=== PATIENT | female | born 1940 | race Caucasian/White ===

== ENCOUNTER 2016-11-09 21:18 | Inpatient (IN) | payer MEDICARE, BC ==
--- NOTE | ~2016-11-09 | OP ---
Record Of Operation [facility] [address] [place]. [address] NAME: SULEIMAN LEWIS : 38 STATUS : ADM IN PAT#: [id number] AGE: 76 ADM/REG DATE : 11/09/16 MR#: [id number] REPORT SERV DATE: 11/10/16 DICTATED BY: LEBRON WILSON DATE: 11/10/16 REPORT STATUS : Draft TRANSCRIBED BY: MODL DATE: 11/10/16 DATE OF PROCEDURE: 11/10/2016 PREOPERATIVE DIAGNOSIS: Right three-part intertrochanteric hip fracture. POSTOPERATIVE DIAGNOSIS: Right three-part intertrochanteric hip fracture. PROCEDURE PERFORMED: Right hip long gamma nail application (intramedullary brian stabilization). SURGEON: Lebron Wilson M.D. SECURITY SPECIALIST: Stan Dowell. ANESTHESIA: Spinal with sedation. PROCEDURE IN DETAIL: The patient is clearly identified, after obtaining informed consent, is brought to the operating room of [facility] where she is induced under general anesthesia, placed carefully on the fracture table, has her right lower extremity distracted with some internal rotation. Image intensification reveals the fracture to be anatomically reduced. The lesser trochanteric fracture is somewhat minimally displaced, but the main body of the intertrochanteric fracture seems anatomic; therefore, it is felt appropriate to proceed. The right lower extremity is prepped and draped in the usual manner and after appropriate time-out procedure is performed just proximal to the greater trochanter through 1-inch incision, skin is divided, fascial planes are elevated. The guide pin is placed carefully into the proximal femur. The greater trochanteric entry site typically that is there is containing the intertrochanteric fracture, but regardless, the site is opened nicely and guided through this case with image intensifier. A beaded guide pin is then placed by the knee, the length measures 360, and therefore, the femur was then reamed to 11.5 mm, at which point, the 125 degree 360 x 10 long gamma nail is opened and placed carefully into position uneventfully. A second incision is made to pass the guide pin into the appropriate position in the femoral head, which therefore was then measured, reamed, and a lag screw is applied uneventfully and dynamically locked. This concluded, looking rather good with the C-arm, the proximal guiding apparatus is removed and subsequently a distal dynamic screw is placed with perfect [place] technique uneventfully, at which point, the image intensifier revealed acceptable position and alignment of fracture as well as fixation. Copious irrigation was performed. The wounds are closed in layers and dressed after the leg is cleansed, at which point, the patient is allowed to awaken and is transferred to the recovery room in stable condition having tolerated the procedure well. CÉSAR/CHRISSY Lebron Wilson M.D. Record Of [address] [address] NAME: SULEIMAN LEWIS HAILEE : 38 STATUS : ADM IN PAT#: [id number] AGE: 76 ADM/REG DATE : 11/09/16 MR#: [id number] REPORT SERV DATE: 11/10/16 DICTATED BY: LEBRON WILSON DATE: 11/10/16 REPORT STATUS : Draft TRANSCRIBED BY: CHRISSY DATE: 11/10/16 / [id number] CC: Devaughn Escobedo MD
--- NOTE | ~2016-11-09 | HP ---
History And Physical [facility] [address] [facility] [place]. [address] NAME: SULEIMAN LEWIS : 38 STATUS : ADM IN [facility]#: [id number] AGE: 76 ADM/REG DATE : 11/09/16 MR#: [id number] REPORT SERV DATE: 11/10/16 DICTATED BY: ESTELA DUARTE DATE: 11/09/16 REPORT STATUS : Draft TRANSCRIBED BY: MODPadmini DATE: 11/09/16 DATE OF ADMISSION: 11/09/2016 CHIEF COMPLAINT: Status post fall with right hip pain and inability to walk today. HISTORY OF PRESENT ILLNESS: This is a very pleasant 76-year-old female. She has a history of breast cancer x2, right and left, status post surgery, radiation, and chemotherapy in 1994 and 2008, currently she is cancer free according to patient and the son who has accompanied the patient, history of hypertension, mild cognitive impairment, osteoporosis presenting today to [facility] accompanied by her son after she sustained a mechanical fall today. The patient was going today to pickle sorter her mail outside and she slipped and she fell on the right side. After that, she has been seen by her neighbor, they helped her to get to her house. They called her son who came and saw the patient and then brought her to [facility] emergency room. There was no presyncopal or syncopal episodes. There was no chest pain or palpitation. There was no shortness of breath, no PND or orthopnea. There was no nausea or vomiting. No diarrhea or constipation. There was no increased urinary frequency or urgency. No hematemesis. No melena. No hematochezia. No other complaints. The patient has been evaluated in the emergency room and x-ray of the right hip has shown that the patient sustained a right hip fracture. The patient has been admitted to Hospitalist Service for further evaluation and treatment. PAST MEDICAL HISTORY: Significant for hypertension, mild cognitive impairment, osteoarthritis, osteoporosis, history of breast cancer. PAST SURGICAL HISTORY: Include multiple dental procedure with prior cellulitis and osteomyelitis of the maxilla. SOCIAL HISTORY: The patient denies tobacco, alcohol, or IV drugs. FAMILY HISTORY: Significant for CVA. ALLERGIES: SHE IS ALLERGIC TO LATEX. MEDICATIONS: At home include Artificial Tears, vitamin C, aspirin, vitamin D3, Catapres, Aricept, Zestril, Claritin, Systane ophthalmic solution, Evista, tobramycin, vitamin E, and Desyrel. REVIEW OF SYSTEMS: A 14-point review of systems has been obtained and pertinent positive has been listed into the history of present illness. Otherwise, negative except those underlying above. PHYSICAL EXAMINATION: VITAL SIGNS: T-max 99.2, blood pressure 138/48, heart rate 81, respiratory rate 19, saturating 97% on room air. GENERAL: She is extremely frail, well-developed, well-nourished female, in no acute distress. She is alert and oriented x3. She is nonfocal. She follows commands History And Physical [address] [address] NAME: SULEIMAN LEWIS : 38 STATUS : ADM IN [facility]#: [id number] AGE: 76 ADM/REG DATE : 11/09/16 MR#: [id number] REPORT SERV DATE: 11/10/16 DICTATED BY: ESTELA DUARTE DATE: 11/09/16 REPORT STATUS : Draft TRANSCRIBED BY: CHRISSY DATE: 11/09/16 appropriately. HEENT: Exam shows pupils equal, round, reactive to light. Extraocular movements intact. No JVD. No lymphadenopathy. No thyromegaly appreciated. CHEST: Evaluation shows bilateral air entry. Clear anteroposterior. Decreased breath sounds bibasilarly. No wheezes, crackles, or rhonchi appreciated. CARDIOVASCULAR: She is regular rate and rhythm. S1, S2 positive. No S3, no S4. No murmurs, rubs, or gallops appreciated. ABDOMEN: Soft with positive bowel sounds. Nontender. No guarding. No rebound. EXTREMITIES: No clubbing, cyanosis, or edema. NEUROLOGY: She is alert and oriented x3. Nonfocal. She is not able to move her right lower extremities. Cranial nerves are intact. She follows all her commands appropriately. LABORATORY DATA: Labs from today include sodium of 136, potassium 4.1, chloride 108, CO2 of 26, BUN 11, creatinine 0.75, glucose is 125, calcium 8.3. Total protein 6.8, albumin 3.3, globulin 3.5. Total bilirubin 0.2, alkaline phosphatase 89, ALT 19, AST 20. Her white count is 13, hemoglobin 11.5, hematocrit 35.4, and platelets are 348, INR is 1.2. Her UA has been negative. A chest x-ray, portable, currently is pending and the hip 1-view showed right femoral neck fracture. ASSESSMENT AND PLAN: This is a very pleasant 76-year-old female, status post fall with: 1. Right hip fracture with intractable pain, inability to walk. 2. History of hypertension. 3. History of dementia. 4. Osteoarthritis with osteoporosis. PLAN: 1. The patient is going to be admitted to Hospitalist Service. We are going to keep her n.p.o. past midnight. IV fluids. Pain control. Check chest x-ray, EKG. We are going to provide pain control, supportive care, and consult Dr. Wilson, Orthopedic, with whom I talked personally and will evaluate the patient in the morning. 2. History of hypertension. We will continue her home medications and provide p.r.n. hydralazine as needed. 3. History of dementia. We will continue her home medications. 4. Osteoarthritis, osteoporosis. We are going to check TSH and a free T4, also a set of cardiac enzymes, magnesium, and phosphorus as well. We are going to provide GI and DVT prophylaxis with SCDs. That has been discussed extensively with the patient as well as the patient's son. All the questions have been answered in full. It is worthwhile to note that the patient is going to be followed up by Hospitalist Service. CF/CHRISSY Estela Duarte M.D. History And Physical [address] [address] NAME: SULEIMAN LEWIS : 38 STATUS : ADM IN PAT#: [id number] AGE: 76 ADM/REG DATE : 11/09/16 MR#: [id number] REPORT SERV DATE: 11/10/16 DICTATED BY: ESTELA DUARTE DATE: 11/09/16 REPORT STATUS : Draft TRANSCRIBED BY: MODL DATE: 11/09/16 / [id number] CC: Devaughn Escobedo MD
--- NOTE | ~2016-11-09 | DS ---
Discharge Summary [facility] [address] [place]. [address] NAME: SULEIMAN LEWIS : 36 STATUS : DIS IN PAT#: [id number] AGE: 76 ADM/REG DATE : 11/09/16 MR#: [id number] REPORT SERV DATE: 11/13/16 DICTATED BY: KRISH CHACON DATE: 11/12/16 REPORT STATUS : Draft TRANSCRIBED BY: MODPadmini DATE: 11/12/16 ADMISSION DATE: 11/09/2016 DISCHARGE DATE: 11/12/2016 CONDITION ON DISCHARGE: Stable. DISPOSITION: Discharged to inpatient rehab for rehabilitating after right hip fracture post ORIF. DIAGNOSES ON DISCHARGE: 1. Right hip fracture, status post open reduction and internal fixation with nail per Orthopedic. 2. Acute blood loss anemia from surgery - resolved after transfusion of packed red blood cells. 3. Hypertension, controlled with current medications. 4. Xsrb-ve-[id number] dementia which is stable and the patient is on Aricept. 5. Frequent falls from above - hopefully, this will be avoided in the future once the patient is in the rehab and learn to balance herself better. BRIEF HOSPITAL COURSE: The patient is a 76-year-old female patient who was admitted with a recent fall, and after one of those falls, she ended up breaking her right hip. The patient was admitted for right hip fracture and underwent open reduction and internal fixation. The patient did great after surgery except that she had quite a bit of blood loss during surgery and had to be given two units of PRBCs. She tolerated the transfusion really well, and today, on the day of discharge, she feels much better. Her color is back, and her hemoglobin and hematocrit is back up to 10 and 30. She feels well and being discharged to inpatient rehab in stable condition. She will be on the following medications upon discharge: 1. Aricept 10 mg once a day. 2. Ferrous sulfate 300 mg p.o. b.i.d. 3. Colace 100 mg p.o. b.i.d. 4. Vitamin D 1000 units p.o. daily. 5. Vitamin C 500 mg p.o. daily. 6. Folic acid 1 mg p.o. daily. 7. Lisinopril 20 mg once a day. 8. Claritin 10 mg once a day. 9. Multivitamins once a day. 10.Protonix 40 mg once a day. 11.TobraDex ophthalmic suspension one drop to both eyes three times a day. 12.Vitamin E 800 units p.o. daily. 13.Coumadin sliding scale per Ortho to keep INR between 2 and 3. 14.Clonidine 0.1 mg topical patch, which will be given once a week. 15.The patient will also be on Evista 60 mg once a day and trazodone or Desyrel 50 mg once at bedtime. She will not be on aspirin 81 mg at least for some more time, maybe for another week or two until she is able to build her counts back up. Discharge Summary [address] [place]. [address] NAME: SULEIMAN LEWIS : 38 STATUS : DIS IN PAT#: [id number] AGE: 76 ADM/REG DATE : 11/09/16 MR#: [id number] REPORT SERV DATE: 11/13/16 DICTATED BY: KRISH CHACON DATE: 11/12/16 REPORT STATUS : Draft TRANSCRIBED BY: CHRISSY DATE: 11/12/16 Most recent labs upon discharge on this patient include the followin. Her CBC on 11/12/2016 shows a WBC count of 10.3, hemoglobin is 10, hematocrit is 29.3 after transfusion. Before transfusion, it was as low as 6.7 and 20.3 due to surgery. However, after she received two units of PRBCs, it came up to 10 and 29.3. Creatinine is normal at 0.5. Electrolytes are normal and her INR today is 3.0 and hence Coumadin should probably be held today but further management of Coumadin and instructions will be given by Orthopedic Surgery as the patient is post hip surgery. I have spent about 35 minutes in coordinating discharge care of this patient including face- to-face encounter and summarizing this discharge. DICTATED BY: Devaughn Escobedo/CHRISSY Krish Chacon M.D. / [id number] CC: Krish Chacon M.D. Sharona Berkowitz MD
[2016-11-09 20:18] LABS: BASOPHILS 0.1 %; BASOPHILS ABSOLUTE 0.01 10/3/uL (0.0-0.16); EOSINOPHILS 0.1 %; EOSINOPHILS ABSOLUTE 0.01 10/3/uL (0.0-0.53); HEMATOCRIT 35.4 % (36.0-48.0); HEMOGLOBIN 11.5 g/dL (12.0-16.0); IMMATURE GRANULOCYTES 0.2 %; IMMATURE GRANULOCYTES ABSOLUTE 0.03 10/3/uL (0.0-0.11); LYMPHOCYTES 8.3 %; LYMPHOCYTES ABSOLUTE 1.08 10/3/uL (0.67-4.30); MEAN CORPUS HGB CONC 32.5 g/dL (32.0-36.0); MEAN CORPUSCULAR HEMOGLOB 28.8 pg (26.0-34.0); MEAN PLATELET VOLUME 9.7 fL (9.2-13.0); MONOCYTES 8.1 %; MONOCYTES ABSOLUTE 1.05 10/3/uL (0.21-1.20); NEUTROPHILS 83.2 %; NEUTROPHILS ABSOLUTE 10.82 10/3/uL (2.02-8.40); PLATELET COUNT 348 10/3/uL (150-400); RBC DISTRIBUTION WIDTH 13.6 % (12.0-16.0); RED CELL COUNT 3.99 10/6/uL (4.0-5.6)
[2016-11-09 20:20] LABS: MANUAL DIFF NO %; MEAN CORPUSCULAR VOLUME 88.7 fL (80-100)
[2016-11-09 20:26] LABS: INTERNATIONAL NORMAL RATI 1.2 UNITS (-); PARTIAL THROMBO TIME 24.5 SEC (22.5-37.2); PROTIME (NOT ORD) 14.8 SEC (12.0-14.5)
[2016-11-09 20:34] LABS: A/G RATIO 0.9 (0.7-1.9); ALBUMIN 3.3 G/DL (3.5-5.0); BUN (BLOOD UREA NITROGEN) 11 MG/DL (6-23); CALCIUM, SERUM 8.3 MG/DL (8.5-10.4); CHLORIDE, SERUM 108 MMOL/L (96-112); CREATININE 0.75 MG/DL (0.55-1.02); GFR AFRICAN AMERICAN 88 ML/MIN (>=60); GFR NON AFRICAN AMERICAN 76 ML/MIN (>=60); GLOBULIN 3.5 G/DL (2.5-4.1); POTASSIUM, SERUM 4.1 MMOL/L (3.5-5.3); SGOT(AST) 20 U/L (5-40); SGPT(ALT) 19 U/L (5-65); SODIUM, SERUM 136 MMOL/L (135-148); TOTAL BILIRUBIN 0.2 MG/DL (0-1.2); TOTAL PROTEIN 6.8 G/DL (6.0-8.5)
[2016-11-09 20:35] LABS: ALKALINE PHOSPHATASE 89 U/L (45-117); CO2 (CARBON DIOXIDE) 26 MMOL/L (24-34); GLUCOSE, SERUM 125 MG/DL (60-99)
[~2016-11-09 21:18] MED LIST: AMIT25 PO; ASAB PO; BONIVA150 MG PO; CALTRA600D PO; CATPATCH1 TOP; EVISTA60 PO; MULTIPLE VIT PO; SURBEX-T1 TAB PO; VITA D PO; VITAMIN D1000 UNI1 PO; VITC500 PO; VITE PO
[2016-11-09] MEDS ORDERED: ARICEPT10 PO (22:06)
[2016-11-09] MEDS ORDERED: EVISTA60 PO (22:06)
[2016-11-09] MEDS ORDERED: [UNRECOGNIZED DRUG - CODE] OPH (22:06)
[2016-11-09] MEDS ORDERED: TRAZ50 PO (22:07)
[2016-11-09] MEDS ORDERED: CLARIT10 PO (22:07)
[2016-11-09] MEDS ORDERED: CATPATCH1 TOP (22:07)
[2016-11-09] MEDS ORDERED: ASAB PO (22:07)
[2016-11-09] MEDS ORDERED: SYSTANE OPH (22:08)
[2016-11-09] MEDS ORDERED: REFRESH OPH (22:08)
[2016-11-09] MEDS ORDERED: VITAMIN B PO (22:08)
[2016-11-09] MEDS ORDERED: VITAMIN D31000 UNIT PO (22:08)
[2016-11-09] MEDS ORDERED: VITE1000 PO (22:09)
[2016-11-09] MEDS ORDERED: VITC500 PO (22:09)
[2016-11-09] MEDS ORDERED: ZESTRIL20 MG PO (22:09)
[2016-11-09 22:30] LABS: ASCORBIC ACID (UR NOT ORDER) NEG (NEG); BILIRUBIN, URINE NEGATIVE (NEG); ER URINALYSIS TAT 0 Hrs 00 Mins; KETONE, URINE TRACE MG/DL (NEG); LEUKOCYTE ESTERASE(NOT OR NEG (NEG); NITRITE (URINE) NEG (NEG); WBC (NOT ORDERED) (RFLEX) 0 (0-5)
[2016-11-10 01:33] LABS: FREE T4 1.14 NG/DL (0.76-1.46); PHOSPHORUS, SERUM 2.6 MG/DL (2.5-4.5); TROPONIN I <0.02 NG/ML (<0.05)
[2016-11-10 03:26] LABS: B NATRIURETIC PEPTIDE (BNP) 39.3 PG/ML (< 100.0)
[2016-11-10 04:24] LABS: BASOPHILS 0.2 %; BASOPHILS ABSOLUTE 0.02 10/3/uL (0.0-0.16); EOSINOPHILS 0 %; HEMATOCRIT 32.2 % (36.0-48.0); HEMOGLOBIN 10.7 g/dL (12.0-16.0); IMMATURE GRANULOCYTES 0.3 %; IMMATURE GRANULOCYTES ABSOLUTE 0.03 10/3/uL (0.0-0.11); LYMPHOCYTES ABSOLUTE 1.38 10/3/uL (0.67-4.30); MEAN CORPUS HGB CONC 33.2 g/dL (32.0-36.0); MEAN CORPUSCULAR HEMOGLOB 29.6 pg (26.0-34.0); MEAN CORPUSCULAR VOLUME 89.2 fL (80-100); MEAN PLATELET VOLUME 9.6 fL (9.2-13.0); MONOCYTES 9.9 %; MONOCYTES ABSOLUTE 0.91 10/3/uL (0.21-1.20); NEUTROPHILS 74.6 %; NEUTROPHILS ABSOLUTE 6.89 10/3/uL (2.02-8.40); PLATELET COUNT 316 10/3/uL (150-400); RBC DISTRIBUTION WIDTH 13.6 % (12.0-16.0); RED CELL COUNT 3.61 10/6/uL (4.0-5.6); WHITE BLOOD CELLS 9.2 10/3/uL (4.5-10.5)
[2016-11-10 04:25] LABS: MANUAL DIFF NO %
[2016-11-10 04:29] LABS: INTERNATIONAL NORMAL RATI 1.2 UNITS (-); PROTIME (NOT ORD) 15.3 SEC (12.0-14.5)
[2016-11-10 04:36] LABS: BUN (BLOOD UREA NITROGEN) 13 MG/DL (6-23); CALCIUM, SERUM 7.7 MG/DL (8.5-10.4); CHLORIDE, SERUM 111 MMOL/L (96-112); CO2 (CARBON DIOXIDE) 24 MMOL/L (24-34); CREATININE 0.67 MG/DL (0.55-1.02); GFR AFRICAN AMERICAN 98 ML/MIN (>=60); GFR NON AFRICAN AMERICAN 84 ML/MIN (>=60); GLUCOSE, SERUM 132 MG/DL (60-99); POTASSIUM, SERUM 4.2 MMOL/L (3.5-5.3); SODIUM, SERUM 141 MMOL/L (135-148)
[2016-11-10 08:30] LABS: GLYCOHEMOGLOBIN (HbA1c) 5.7 % (4.7-6.1)
[2016-11-11 04:24] LABS: HEMATOCRIT 21.3 % (36.0-48.0); HEMOGLOBIN 7.1 g/dL (12.0-16.0)
[2016-11-11 04:32] LABS: INTERNATIONAL NORMAL RATI 1.4 UNITS (-); PROTIME (NOT ORD) 16.8 SEC (12.0-14.5)
[2016-11-11 04:36] LABS: CALCIUM, SERUM 7.1 MG/DL (8.5-10.4); CHLORIDE, SERUM 108 MMOL/L (96-112); CO2 (CARBON DIOXIDE) 23 MMOL/L (24-34); CREATININE 0.75 MG/DL (0.55-1.02); GFR AFRICAN AMERICAN 88 ML/MIN (>=60); GFR NON AFRICAN AMERICAN 76 ML/MIN (>=60); GLUCOSE, SERUM 155 MG/DL (60-99)
[2016-11-11 04:40] LABS: BUN (BLOOD UREA NITROGEN) 8 MG/DL (6-23); SODIUM, SERUM 134 MMOL/L (135-148)
[2016-11-11 16:43] LABS: HEMATOCRIT 20.3 % (36.0-48.0); HEMOGLOBIN 6.7 g/dL (12.0-16.0)
[2016-11-12 05:55] LABS: BASOPHILS 0.2 %; BASOPHILS ABSOLUTE 0.02 10/3/uL (0.0-0.16); EOSINOPHILS 0.5 %; EOSINOPHILS ABSOLUTE 0.05 10/3/uL (0.0-0.53); IMMATURE GRANULOCYTES 0.9 %; IMMATURE GRANULOCYTES ABSOLUTE 0.09 10/3/uL (0.0-0.11); LYMPHOCYTES 17.6 %; LYMPHOCYTES ABSOLUTE 1.81 10/3/uL (0.67-4.30); MEAN CORPUS HGB CONC 34.1 g/dL (32.0-36.0); MEAN CORPUSCULAR HEMOGLOB 29.9 pg (26.0-34.0); MEAN CORPUSCULAR VOLUME 87.5 fL (80-100); MEAN PLATELET VOLUME 9.9 fL (9.2-13.0); MONOCYTES 12.1 %; MONOCYTES ABSOLUTE 1.25 10/3/uL (0.21-1.20); NEUTROPHILS 68.7 %; NEUTROPHILS ABSOLUTE 7.07 10/3/uL (2.02-8.40); RBC DISTRIBUTION WIDTH 13.8 % (12.0-16.0); RED CELL COUNT 3.35 10/6/uL (4.0-5.6); WHITE BLOOD CELLS 10.3 10/3/uL (4.5-10.5)
[2016-11-12 05:56] LABS: HEMATOCRIT 29.3 % (36.0-48.0); MANUAL DIFF NO %; PLATELET COUNT 193 10/3/uL (150-400)
[2016-11-12 06:08] LABS: BUN (BLOOD UREA NITROGEN) 10 MG/DL (6-23); CALCIUM, SERUM 7.6 MG/DL (8.5-10.4); CHLORIDE, SERUM 109 MMOL/L (96-112); CO2 (CARBON DIOXIDE) 25 MMOL/L (24-34); CREATININE 0.56 MG/DL (0.55-1.02); GFR AFRICAN AMERICAN 104 ML/MIN (>=60); GFR NON AFRICAN AMERICAN 89 ML/MIN (>=60); POTASSIUM, SERUM 4.2 MMOL/L (3.5-5.3); PROTIME (NOT ORD) 30.7 SEC (12.0-14.5); SODIUM, SERUM 136 MMOL/L (135-148)
[2016-11-12 06:14] LABS: GLUCOSE, SERUM 92 MG/DL (60-99)
== END 2016-11-12 14:41 | DRG 481 ==
LOC: ER 21:18 → 3SO 23:02
PROVIDERS: Emergency Medicine; Internal Medicine; Orthopaedic Surgery
PROC: 0QS604Z Reposition Right Upper Femur with Internal Fixation Device, Open Approach (ICD-10-PCS; principal; 2016-11-09)
PROC: 30233N1 Transfusion of Nonautologous Red Blood Cells into Peripheral Vein, Percutaneous Approach (ICD-10-PCS; 2016-11-11)
DX: M80.051A Age-related osteoporosis with current pathological fracture, right femur, initial encounter for fracture (principal); D62 Acute posthemorrhagic anemia; F03.90 Unspecified dementia, unspecified severity, without behavioral disturbance, psychotic disturbance, mood disturbance, and anxiety; I10 Essential (primary) hypertension; Z51.5 Encounter for palliative care; Z91.81 History of falling; Z85.3 Personal history of malignant neoplasm of breast; Z82.3 Family history of stroke; Z91.040 Latex allergy status; M19.90 Unspecified osteoarthritis, unspecified site; M81.0 Age-related osteoporosis without current pathological fracture; Z79.82 Long term (current) use of aspirin; Z79.899 Other long term (current) drug therapy; Z92.3 Personal history of irradiation; Z92.21 Personal history of antineoplastic chemotherapy; W19.XXXA Unspecified fall, initial encounter; Y92.014 Private driveway to single-family (private) house as the place of occurrence of the external cause
CPT/HCPCS: 36415; 71010; 73502-RT; 73552-RT; 76000; 80048; 80053; 81001; 83036; 83615; 83735; 83880; 84100; 84439; 84443; 84484; 85014; 85018; 85025; 85610; 85730; 86850; 86900; 86901; 86920; 93005; 96374; 96375; 97110-GP; 97161-GP; 97166-GO; 97530-GP; 99285; A9270-GY; C1713; C1769; G8978-CL-GP; G8979-CJ-GP; J0690; J1170; J2250; J2405; J2710; J2795; J3010; P9016; P9045